=== PATIENT | male | born 2000 | race Caucasian/White ===

== ENCOUNTER 2021-07-21 10:39 | Emergency (ER) | payer OTHER, SELFPAY ==
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
[2021-07-21 10:45] VITALS: BP 128/74; PULSE 96; O2SAT 100
[2021-07-21 10:53] VITALS: BP 138/66; PULSE 76; RESP 18; TEMP 36.6; O2SAT 100; BMI 28.8
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
== END 2021-07-21 12:07 | disposition home or self-care (01) ==
PROVIDERS: Emergency Provider Emergency Medicine
DX: S39.012A Strain of muscle, fascia and tendon of lower back, initial encounter (principal); V89.2XXA Person injured in unspecified motor-vehicle accident, traffic, initial encounter; Y93.9 Activity, unspecified; Y92.410 Unspecified street and highway as the place of occurrence of the external cause; Y99.9 Unspecified external cause status
CPT/HCPCS: 70450; 72100; 99283; 99284